=== PATIENT | male | born 1940 | race Caucasian/White ===

== ENCOUNTER → 2024-05-12 | Outpatient (CLI) | payer MEDICARE, OTHER, SELFPAY ==
[2024-05-12 11:03] LABS: Basophils # (Auto) 0.1 Thou/mm3 (0.0-0.2); Basophils % (Auto) 1 % (0-2.5); Eosinophils # (Auto) 0.4 Thou/mm3 (0.0-0.5); Eosinophils % (Auto) 6 % (0-10); Hemoglobin 13.9 g/dL (13.5-16.0); Immature Granulocytes % (Auto) 1 % (0-0); Immature Granulocytes Auto 0.06 Thou/mm3 (0.00-0.00); Lymphocytes # (Auto) 2.2 Thou/mm3 (1.0-4.8); Lymphocytes % (Auto) 33 % (10-50); Mean Corpuscular HGB Conc 33.9 g/dl (31.0-37.0); Mean Corpuscular Volume 88 fL (80-100); Monocytes # (Auto) 0.5 Thou/mm3 (0.0-0.8); Monocytes % (Auto) 7 % (0-12); Neutrophils # (Auto) 3.4 Thou/mm3 (1.8-7.7); Neutrophils % (Auto) 52 % (37-80); Nucleated Red Blood Cell % 0 /100 WBC (0); Platelet Count 220 Thou/mm3 (140-440); RDW Standard Deviation 45.1 fL (35.1-43.9); Red Blood Count 4.64 Miln/mm3 (4.50-5.90); White Blood Count 6.6 Thou/mm3 (3.8-10.6)
[2024-05-12 11:28] LABS: Alanine Aminotransferase 17 U/L (10-49); Albumin, Serum 4.4 gm/dL (3.4-4.8); Albumin/Globulin Ratio 1.8 (1.2-2.2); Alkaline Phosphatase 38 U/L (46-116); Anion Gap 6 (7-16); Aspartate Amino Transferase 19 U/L (0-34); BUN/Creatinine Ratio 17 Ratio (12-20); Bilirubin,Total 0.4 mg/dL (0.3-1.2); Blood Urea Nitrogen 24 mg/dL (9-23); Carbon Dioxide 27.9 mMol/L (20.0-31.0); Chloride 103 mMol/L (98-107); Creatinine (Component) 1.4 mg/dL (0.6-1.3); Globulin 2.5 gm/dL (2.3-3.5); Glucose 102 mg/dL (74-106); Osmolality,Calculated 277 (275-295); Potassium 3.6 mMol/L (3.4-5.1); Sodium 137 mMol/L (136-145); Total Protein 6.9 gm/dL (5.7-8.2); eGFR 50 See Note
== END | disposition home or self-care (01) ==
PROVIDERS: PCP Family Medicine; Referring Provider Internal Medicine Nephrology; Visit Provider Internal Medicine Nephrology
DX: I12.9 Hypertensive chronic kidney disease with stage 1 through stage 4 chronic kidney disease, or unspecified chronic kidney disease (principal); N18.9 Chronic kidney disease, unspecified; D63.1 Anemia in chronic kidney disease
CPT/HCPCS: 36415; 80053; 85025

== ENCOUNTER 2024-05-20 08:56 | Outpatient (RCR) | payer MEDICARE, OTHER, SELFPAY ==
--- NOTE | 2024-05-20 10:45 | CTCFLWUP_ITS ---
[facility] [address], [place] [address] FOLLOW-UP NOTE Date: 05/20/2024 MR#: [id number] Name: AMI CAMACHO : 1940 Dx: C61 Malignant neoplasm of prostate Identification. History of prostate CA status post radical prostatectomy 2007.. Noted to have rising PSA up to 5.41 12/30 2002 No evidence of lesion or distant mets on imaging studies. PET scan 09/26/2022 no met disease. 6840 cGy completed 05/06/2023. No ADT given concurrently. Most recent PSA 01/14/2024 0.11. 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 Has follow-up with Dr. Nita magana in June. I will see him back in 6 months with another PSA check. Electronically signed by: Koko Snyder M.D. 05/20/2024 10:42 AM
== END 2024-05-29 23:59 | disposition home or self-care (01) ==
LOC: SCTC 08:56
PROVIDERS: PCP Family Medicine; Referring Provider Family Medicine; Visit Provider Radiology Therapeutic Radiology
DX: C61 Malignant neoplasm of prostate (principal); Z90.79 Acquired absence of other genital organ(s); Z92.3 Personal history of irradiation
CPT/HCPCS: 99213; G0463

== ENCOUNTER → 2024-06-09 | Outpatient (CLI) | payer MEDICARE, OTHER, SELFPAY ==
[2024-06-09 11:40] LABS: Basophils % (Auto) 1 % (0-2.5); Eosinophils # (Auto) 0.4 Thou/mm3 (0.0-0.5); Eosinophils % (Auto) 6 % (0-10); Hematocrit 42.7 % (41.0-53.0); Hemoglobin 14.4 g/dL (13.5-16.0); Immature Granulocytes % (Auto) 0 % (0-0); Immature Granulocytes Auto 0.02 Thou/mm3 (0.00-0.00); Lymphocytes # (Auto) 2.3 Thou/mm3 (1.0-4.8); Lymphocytes % (Auto) 31 % (10-50); Mean Corpuscular HGB Conc 33.7 g/dl (31.0-37.0); Mean Corpuscular Hemoglobin 29.8 pg (25.0-35.0); Mean Corpuscular Volume 88 fL (80-100); Monocytes # (Auto) 0.6 Thou/mm3 (0.0-0.8); Monocytes % (Auto) 8 % (0-12); Neutrophils % (Auto) 55 % (37-80); Nucleated Red Blood Cell % 0 /100 WBC (0); Platelet Count 193 Thou/mm3 (140-440); RDW Standard Deviation 44.9 fL (35.1-43.9); Red Blood Count 4.83 Miln/mm3 (4.50-5.90); White Blood Count 7.3 Thou/mm3 (3.8-10.6)
[2024-06-09 12:11] LABS: Sed Rate (ESR) 6 mm/hr (0-20)
[2024-06-09 12:12] LABS: Alanine Aminotransferase 14 U/L (10-49); Albumin, Serum 4.6 gm/dL (3.4-4.8); Albumin/Globulin Ratio 1.9 (1.2-2.2); Alkaline Phosphatase 35 U/L (46-116); Anion Gap 7 (7-16); Aspartate Amino Transferase < 10 U/L (0-34); BUN/Creatinine Ratio 18 Ratio (12-20); Bilirubin,Total 0.6 mg/dL (0.3-1.2); Blood Urea Nitrogen 25 mg/dL (9-23); Calcium 9.7 mg/dL (8.3-10.6); Calcium (Corrected) 9.7 mg/dL (8.5-10.1); Carbon Dioxide 28.9 mMol/L (20.0-31.0); Cardiac Risk Estimate 6.3 RATIO (4.0-6.7); Chloride 100 mMol/L (98-107); Cholesterol 238 mg/dL (132-200); Creatine Kinase 77 U/L (34-171); Creatinine (Component) 1.4 mg/dL (0.6-1.3); Globulin 2.4 gm/dL (2.3-3.5); Glucose 96 mg/dL (74-106); HDL Cholesterol 38 mg/dL (40-60); LDL Cholesterol,Calculated 134 mg/dL (0-130); Magnesium 2.1 mg/dL (1.6-2.6); Osmolality,Calculated 276 (275-295); Potassium 4.1 mMol/L (3.4-5.1); Sodium 136 mMol/L (136-145); Triglycerides 332 mg/dL (30-150); eGFR 50 See Note
[2024-06-09 13:57] LABS: Creatinine MALB Rnd Ur 83 mg/dL (30-125); Microalbumin, Random Urine < 3 mg/L (0-300)
[2024-06-14 06:58] LABS: Aldolase* 4.7 U/L (< OR = 8.1)
== END | disposition home or self-care (01) ==
LOC: COPL 10:42
PROVIDERS: PCP Family Medicine; Referring Provider Internal Medicine Nephrology; Visit Provider Internal Medicine Nephrology
DX: I12.9 Hypertensive chronic kidney disease with stage 1 through stage 4 chronic kidney disease, or unspecified chronic kidney disease (principal); N18.9 Chronic kidney disease, unspecified; D63.1 Anemia in chronic kidney disease; E78.5 Hyperlipidemia, unspecified
CPT/HCPCS: 36415; 80053; 80061; 82043; 82085; 82550; 82570; 83735; 85025; 85652

== ENCOUNTER → 2024-07-14 | Outpatient (CLI) | payer MEDICARE, OTHER, SELFPAY ==
[2024-07-14 11:42] LABS: Basophils # (Auto) 0.1 Thou/mm3 (0.0-0.2); Basophils % (Auto) 1 % (0-2.5); Eosinophils # (Auto) 0.8 Thou/mm3 (0.0-0.5); Eosinophils % (Auto) 10 % (0-10); Hematocrit 41.4 % (41.0-53.0); Hemoglobin 14.1 g/dL (13.5-16.0); Immature Granulocytes % (Auto) 1 % (0-0); Immature Granulocytes Auto 0.04 Thou/mm3 (0.00-0.00); Lymphocytes # (Auto) 2.5 Thou/mm3 (1.0-4.8); Lymphocytes % (Auto) 30 % (10-50); Mean Corpuscular HGB Conc 34.1 g/dl (31.0-37.0); Mean Corpuscular Volume 88 fL (80-100); Monocytes # (Auto) 0.7 Thou/mm3 (0.0-0.8); Monocytes % (Auto) 8 % (0-12); Neutrophils # (Auto) 4.2 Thou/mm3 (1.8-7.7); Neutrophils % (Auto) 51 % (37-80); Nucleated Red Blood Cell % 0 /100 WBC (0); Platelet Count 203 Thou/mm3 (140-440); RDW Standard Deviation 43.1 fL (35.1-43.9); White Blood Count 8.4 Thou/mm3 (3.8-10.6)
[2024-07-14 11:57] LABS: Alanine Aminotransferase 15 U/L (10-49); Albumin, Serum 4.3 gm/dL (3.4-4.8); Albumin/Globulin Ratio 1.9 (1.2-2.2); Alkaline Phosphatase 33 U/L (46-116); Anion Gap 7 (7-16); Aspartate Amino Transferase 14 U/L (0-34); BUN/Creatinine Ratio 18 Ratio (12-20); Bilirubin,Total 0.5 mg/dL (0.3-1.2); Blood Urea Nitrogen 25 mg/dL (9-23); Calcium 9.8 mg/dL (8.3-10.6); Calcium (Corrected) 9.8 mg/dL (8.5-10.1); Carbon Dioxide 30.4 mMol/L (20.0-31.0); Cardiac Risk Estimate 4.9 RATIO (4.0-6.7); Chloride 102 mMol/L (98-107); Cholesterol 167 mg/dL (132-200); Creatinine (Component) 1.4 mg/dL (0.6-1.3); Globulin 2.3 gm/dL (2.3-3.5); Glucose 99 mg/dL (74-106); HDL Cholesterol 34 mg/dL (40-60); LDL Cholesterol,Calculated 91 mg/dL (0-130); Osmolality,Calculated 281 (275-295); Potassium 4.1 mMol/L (3.4-5.1); Sodium 139 mMol/L (136-145); Total Protein 6.6 gm/dL (5.7-8.2); Triglycerides 208 mg/dL (30-150); eGFR 50 See Note
== END | disposition home or self-care (01) ==
LOC: COPL 10:09
PROVIDERS: PCP Family Medicine; Referring Provider Internal Medicine Nephrology; Visit Provider Internal Medicine Nephrology
DX: I12.9 Hypertensive chronic kidney disease with stage 1 through stage 4 chronic kidney disease, or unspecified chronic kidney disease (principal); N18.9 Chronic kidney disease, unspecified; D63.1 Anemia in chronic kidney disease; E78.5 Hyperlipidemia, unspecified
CPT/HCPCS: 36415; 80053; 80061; 85025

== ENCOUNTER → 2024-08-11 | Outpatient (CLI) | payer MEDICARE, OTHER, SELFPAY ==
[2024-08-11 12:08] LABS: Basophils # (Auto) 0.1 Thou/mm3 (0.0-0.2); Basophils % (Auto) 1 % (0-2.5); Eosinophils # (Auto) 0.5 Thou/mm3 (0.0-0.5); Eosinophils % (Auto) 7 % (0-10); Hematocrit 40.9 % (41.0-53.0); Hemoglobin 13.8 g/dL (13.5-16.0); Immature Granulocytes % (Auto) 1 % (0-0); Immature Granulocytes Auto 0.04 Thou/mm3 (0.00-0.00); Lymphocytes # (Auto) 2.6 Thou/mm3 (1.0-4.8); Lymphocytes % (Auto) 35 % (10-50); Mean Corpuscular HGB Conc 33.7 g/dl (31.0-37.0); Mean Corpuscular Hemoglobin 29.6 pg (25.0-35.0); Mean Corpuscular Volume 88 fL (80-100); Monocytes # (Auto) 0.6 Thou/mm3 (0.0-0.8); Monocytes % (Auto) 9 % (0-12); Neutrophils # (Auto) 3.5 Thou/mm3 (1.8-7.7); Neutrophils % (Auto) 48 % (37-80); Nucleated Red Blood Cell % 0 /100 WBC (0); Platelet Count 187 Thou/mm3 (140-440); RDW Standard Deviation 43.5 fL (35.1-43.9); Red Blood Count 4.67 Miln/mm3 (4.50-5.90); White Blood Count 7.3 Thou/mm3 (3.8-10.6)
[2024-08-11 12:26] LABS: Alanine Aminotransferase 30 U/L (10-49); Albumin, Serum 4.3 gm/dL (3.4-4.8); Albumin/Globulin Ratio 1.8 (1.2-2.2); Alkaline Phosphatase 35 U/L (46-116); Anion Gap 7 (7-16); Aspartate Amino Transferase 21 U/L (0-34); BUN/Creatinine Ratio 20 Ratio (12-20); Bilirubin,Total 0.5 mg/dL (0.3-1.2); Blood Urea Nitrogen 28 mg/dL (9-23); Calcium 10.5 mg/dL (8.3-10.6); Calcium (Corrected) 10.5 mg/dL (8.5-10.1); Carbon Dioxide 29.3 mMol/L (20.0-31.0); Chloride 104 mMol/L (98-107); Creatinine (Component) 1.4 mg/dL (0.6-1.3); Globulin 2.4 gm/dL (2.3-3.5); Glucose 91 mg/dL (74-106); Osmolality,Calculated 284 (275-295); Sodium 140 mMol/L (136-145); Total Protein 6.7 gm/dL (5.7-8.2); eGFR 50 See Note
[2024-08-11 12:28] LABS: Creatinine MALB Rnd Ur 90 mg/dL (30-125); Microalbumin, Random Urine < 3 mg/L (0-300)
== END | disposition home or self-care (01) ==
LOC: COPL 10:54
PROVIDERS: PCP Family Medicine; Referring Provider Internal Medicine Nephrology; Visit Provider Internal Medicine Nephrology
DX: I12.9 Hypertensive chronic kidney disease with stage 1 through stage 4 chronic kidney disease, or unspecified chronic kidney disease (principal); N18.9 Chronic kidney disease, unspecified; D63.1 Anemia in chronic kidney disease; E78.5 Hyperlipidemia, unspecified; N40.1 Benign prostatic hyperplasia with lower urinary tract symptoms
CPT/HCPCS: 36415; 80053; 82043; 82570; 85025

== ENCOUNTER → 2024-09-15 | Outpatient (CLI) | payer MEDICARE, OTHER, SELFPAY ==
[2024-09-15 11:26] LABS: Basophils # (Auto) 0.1 Thou/mm3 (0.0-0.2); Basophils % (Auto) 1 % (0-2.5); Eosinophils # (Auto) 0.4 Thou/mm3 (0.0-0.5); Eosinophils % (Auto) 6 % (0-10); Hematocrit 40.5 % (41.0-53.0); Hemoglobin 13.6 g/dL (13.5-16.0); Immature Granulocytes % (Auto) 1 % (0-0); Immature Granulocytes Auto 0.03 Thou/mm3 (0.00-0.00); Lymphocytes # (Auto) 2.3 Thou/mm3 (1.0-4.8); Lymphocytes % (Auto) 36 % (10-50); Mean Corpuscular HGB Conc 33.6 g/dl (31.0-37.0); Mean Corpuscular Hemoglobin 29.6 pg (25.0-35.0); Mean Corpuscular Volume 88 fL (80-100); Monocytes # (Auto) 0.5 Thou/mm3 (0.0-0.8); Monocytes % (Auto) 8 % (0-12); Neutrophils # (Auto) 3.2 Thou/mm3 (1.8-7.7); Neutrophils % (Auto) 49 % (37-80); Nucleated Red Blood Cell % 0 /100 WBC (0); Platelet Count 204 Thou/mm3 (140-440); RDW Standard Deviation 44.4 fL (35.1-43.9); White Blood Count 6.5 Thou/mm3 (3.8-10.6)
[2024-09-15 11:44] LABS: Alanine Aminotransferase 17 U/L (10-49); Albumin/Globulin Ratio 1.7 (1.2-2.2); Alkaline Phosphatase 32 U/L (46-116); Anion Gap 7 (7-16); Aspartate Amino Transferase 16 U/L (0-34); BUN/Creatinine Ratio 18 Ratio (12-20); Bilirubin,Total 0.6 mg/dL (0.3-1.2); Blood Urea Nitrogen 25 mg/dL (9-23); Calcium 9.4 mg/dL (8.3-10.6); Calcium (Corrected) 9.4 mg/dL (8.5-10.1); Carbon Dioxide 29.3 mMol/L (20.0-31.0); Chloride 104 mMol/L (98-107); Creatinine (Component) 1.4 mg/dL (0.6-1.3); Globulin 2.3 gm/dL (2.3-3.5); Glucose 91 mg/dL (74-106); Osmolality,Calculated 283 (275-295); Potassium 4.5 mMol/L (3.4-5.1); Sodium 140 mMol/L (136-145); Total Protein 6.3 gm/dL (5.7-8.2); eGFR 50 See Note
== END | disposition home or self-care (01) ==
LOC: COPL 10:33
PROVIDERS: PCP Family Medicine; Referring Provider Internal Medicine; Visit Provider Internal Medicine
DX: I12.9 Hypertensive chronic kidney disease with stage 1 through stage 4 chronic kidney disease, or unspecified chronic kidney disease (principal); D63.1 Anemia in chronic kidney disease; N18.30 Chronic kidney disease, stage 3 unspecified
CPT/HCPCS: 36415; 80053; 85025

== ENCOUNTER 2024-09-28 06:43 | Day surgery (SDC) | payer MEDICARE, OTHER, SELFPAY ==
--- NOTE | 2024-09-27 07:00 | EKG_ITS ---
[facility] Test Date: 2024-09-27 Pat Name: AMI CAMACHO Department: Room: - Gender: Male Neurology Hospitalist: FTUIB : 1940 Requested By: Genny Larsen Order Number: [id number] Reading MD: Genny Larsen Measurements Intervals [place] Rate: 59 P: 73 MO: 269 QRS: -19 QRSD: 79 T: 8 QT: 395 QTc: 393 Interpretive Statements SINUS BRADYCARDIA WITH SINUS ARRHYTHMIA WITH FIRST DEGREE AV BLOCK Compared to ECG 11/14/2023 15:06:34 First degree AV block now present Atrial-paced complex(es) or rhythm no longer present Ventricular-paced complex(es) or rhythm no longer present /store/S0/[id number].pdf
[2024-09-27 12:55] LABS: Basophils # (Auto) 0.1 Thou/mm3 (0.0-0.2); Basophils % (Auto) 1 % (0-2.5); Eosinophils # (Auto) 0.6 Thou/mm3 (0.0-0.5); Eosinophils % (Auto) 8 % (0-10); Hematocrit 42.3 % (41.0-53.0); Hemoglobin 14.3 g/dL (13.5-16.0); Immature Granulocytes % (Auto) 0 % (0-0); Immature Granulocytes Auto 0.03 Thou/mm3 (0.00-0.00); Lymphocytes # (Auto) 2.9 Thou/mm3 (1.0-4.8); Lymphocytes % (Auto) 39 % (10-50); Mean Corpuscular HGB Conc 33.8 g/dl (31.0-37.0); Mean Corpuscular Hemoglobin 29.6 pg (25.0-35.0); Mean Corpuscular Volume 88 fL (80-100); Monocytes # (Auto) 0.6 Thou/mm3 (0.0-0.8); Monocytes % (Auto) 8 % (0-12); Neutrophils # (Auto) 3.3 Thou/mm3 (1.8-7.7); Neutrophils % (Auto) 44 % (37-80); Nucleated Red Blood Cell % 0 /100 WBC (0); Platelet Count 206 Thou/mm3 (140-440); RDW Standard Deviation 44.3 fL (35.1-43.9); Red Blood Count 4.83 Miln/mm3 (4.50-5.90); White Blood Count 7.5 Thou/mm3 (3.8-10.6)
[2024-09-27 13:01] LABS: Anion Gap 8 (7-16); BUN/Creatinine Ratio 15 Ratio (12-20); Blood Urea Nitrogen 20 mg/dL (9-23); Calcium 10.3 mg/dL (8.3-10.6); Carbon Dioxide 28.9 mMol/L (20.0-31.0); Chloride 102 mMol/L (98-107); Creatinine (Component) 1.3 mg/dL (0.6-1.3); Glucose 94 mg/dL (74-106); Osmolality,Calculated 280 (275-295); Potassium 4.2 mMol/L (3.4-5.1); Sodium 139 mMol/L (136-145); eGFR 55 See Note
[2024-09-27 13:07] LABS: Partial Thromboplastin Time 26.2 Seconds (22.0-36.0); Prothrombin Time 11.1 Seconds (9.0-12.2)
[2024-09-27 13:13] LABS: COVID-19 Antigen (In-House) Negative (Negative)
--- NOTE | 2024-09-27 13:14 | EKG_ITS ---
[facility] Test Date: 2024-09-27 Pat Name: AMI CAMACHO Department: Room: - Gender: Male Legal Service Specialist: LUIS DANIEL : 1940 Requested By: Genny Larsen Order Number: [id number] Reading MD: Genny Larsen Measurements Intervals [place] Rate: 76 P: 151 MD: 208 QRS: -61 QRSD: 204 T: 94 QT: 491 QTc: 555 Interpretive Statements ELECTRONIC ATRIAL PACEMAKER ELECTRONIC VENTRICULAR PACEMAKER ABNORMAL RHYTHM ECG Compared to ECG 09/27/2024 08:40:45 Sinus bradycardia no longer present Sinus arrhythmia no longer present First degree AV block no longer present /store/S0/[id number]/[id number].pdf
[2024-09-28] VITALS (17 sets, daily range): BP systolic 132–173; BP diastolic 69–96; PULSE 62–73; RESP 11–19; TEMP 36.3–36.7; O2SAT 92–98
[2024-09-28] MEDS: DIAZEPAM 5 MG TABLET PO (07:15)
--- NOTE | 2024-09-28 08:55 | PD.CARDCATH ---
Cardiac Cath Procedure Procedure Narrative Date of the procedure 09/28/2024 Title of the procedure 1. Left heart catheterization 2. Left coronary angiogram 3. Right coronary angiogram 4. Left ventriculogram 5. Conscious sedation 6. Radiographic interpretation supervision 7. Ultrasound guidence for Right radial access 8.angioplasty and stent placement to mid RCA complex procedure Indication for the procedure This is a 84-year-old gentleman with past medical history of hypertension hyperlipidemia atrial fibrillation prior history of permanent pacemaker placement Patient was complaining of atypical chest pain short of breath He did undergo stress test which was abnormal Cardiac catheter and cholangiogram recommended Procedure This is done in the cardiac lab under continuous electrocardiographic monitoring Intermittent blood pressure monitoring right radial arterial access obtained using modified Seldinger technique 6 Upper Sorbian radial sheath was placed under ultrasound guidence TIG catheter was used for selective injection of the Left coronary artery TIG cather was used for selective injection of the Right coroanry artery TIG cather was used for LV gram Findings Hemodynamics Left ventricular systolic function is 30 to 35% Left ventricular end-diastolic pressure is 18 mmHg Gradient across the aortic valve is 0 mm gradient Coronary anatomy Right dominance Left main coronary artery is normal Left anterior descending artery is mid segment shows a 90% lesion Diagonal vessel is luminal regularities Left circumflex artery is normal Obtuse marginal vessel is luminal irregularities Right coronary artery is mid segment shows a 90% lesion Posterior descending artery is luminal irregularities Conclusion 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 We will proceed with intervention Recommendation Angioplasty and stent placement to RCA Angioplasty and stent placement RCA JR4 guiding catheter used to obtain coaxial access Fur Examiner 50 wire was used to cross the lesion Predilatation was done with 3 x 15 mm balloon up to 12 miya Following that we initially attempted to cross the lesion with a 4 x 18 mm stent however this was found to be difficult Subsequently 3.5 x 18 mm stent was brought back this is also unable to cross the lesion Moderate support wire was brought in and even with this we were unable to cross the lesion At this point we brought down the Godzilla with the help of Vipul we were able to place a stent across the lesion and dilated up to 18 miya Post an angiogram reveals adequate expansion of the entire length of the stent Conclusion Angioplasty and stent placement to mid RCA Proximal LAD lesion will be treated as a staged procedure with intervention
== END 2024-09-28 13:00 | disposition home or self-care (01) ==
PROVIDERS: PCP Family Medicine; Referring Provider Internal Medicine; Visit Provider Internal Medicine
PROC: (CPT 93458; principal; 2024-09-28 08:15)
DX: I25.118 Atherosclerotic heart disease of native coronary artery with other forms of angina pectoris (principal); I48.91 Unspecified atrial fibrillation; E78.5 Hyperlipidemia, unspecified; I10 Essential (primary) hypertension; Z95.5 Presence of coronary angioplasty implant and graft; Z01.810 Encounter for preprocedural cardiovascular examination
CPT/HCPCS: 93458; C9600; 36415; 80048; 85025; 85610; 85730; 87811; 93005; 99152; 99153; A4216; A4649; C1725; C1769; C1874; C1887; C1894; J0153; J0171; J0282; J0461; J0583; J1643; J2250; J2310; J2371; J3010; J3490; A9270; J2305

== ENCOUNTER → 2024-10-07 | Outpatient (CLI) | payer MEDICARE, OTHER, SELFPAY ==
[2024-10-07 09:29] LABS: Basophils # (Auto) 0.1 Thou/mm3 (0.0-0.2); Basophils % (Auto) 1 % (0-2.5); Eosinophils # (Auto) 0.5 Thou/mm3 (0.0-0.5); Eosinophils % (Auto) 8 % (0-10); Hematocrit 40.7 % (41.0-53.0); Hemoglobin 13.6 g/dL (13.5-16.0); Immature Granulocytes % (Auto) 0 % (0-0); Immature Granulocytes Auto 0.01 Thou/mm3 (0.00-0.00); Lymphocytes # (Auto) 2.6 Thou/mm3 (1.0-4.8); Lymphocytes % (Auto) 40 % (10-50); Mean Corpuscular HGB Conc 33.4 g/dl (31.0-37.0); Mean Corpuscular Hemoglobin 29.3 pg (25.0-35.0); Mean Corpuscular Volume 88 fL (80-100); Monocytes # (Auto) 0.6 Thou/mm3 (0.0-0.8); Monocytes % (Auto) 9 % (0-12); Neutrophils # (Auto) 2.8 Thou/mm3 (1.8-7.7); Neutrophils % (Auto) 42 % (37-80); Nucleated Red Blood Cell % 0 /100 WBC (0); Platelet Count 194 Thou/mm3 (140-440); RDW Standard Deviation 44.4 fL (35.1-43.9); Red Blood Count 4.64 Miln/mm3 (4.50-5.90); White Blood Count 6.6 Thou/mm3 (3.8-10.6)
[2024-10-07 10:04] LABS: Alanine Aminotransferase 11 U/L (10-49); Albumin, Serum 4.1 gm/dL (3.4-4.8); Albumin/Globulin Ratio 1.5 (1.2-2.2); Alkaline Phosphatase 37 U/L (46-116); Anion Gap 8 (7-16); Aspartate Amino Transferase 17 U/L (0-34); BUN/Creatinine Ratio 14 Ratio (12-20); Bilirubin,Total 0.8 mg/dL (0.3-1.2); Blood Urea Nitrogen 21 mg/dL (9-23); Calcium 9.4 mg/dL (8.3-10.6); Calcium (Corrected) 9.4 mg/dL (8.5-10.1); Carbon Dioxide 27.8 mMol/L (20.0-31.0); Chloride 103 mMol/L (98-107); Creatinine (Component) 1.5 mg/dL (0.6-1.3); Globulin 2.7 gm/dL (2.3-3.5); Glucose 97 mg/dL (74-106); Magnesium 2.1 mg/dL (1.6-2.6); Osmolality,Calculated 280 (275-295); Sodium 139 mMol/L (136-145); Total Protein 6.8 gm/dL (5.7-8.2); eGFR 46 See Note
== END | disposition home or self-care (01) ==
LOC: COPL 08:08
PROVIDERS: PCP Family Medicine; Referring Provider Internal Medicine Nephrology; Visit Provider Internal Medicine Nephrology
DX: I12.9 Hypertensive chronic kidney disease with stage 1 through stage 4 chronic kidney disease, or unspecified chronic kidney disease (principal); N18.9 Chronic kidney disease, unspecified; D63.1 Anemia in chronic kidney disease; E55.9 Vitamin D deficiency, unspecified
CPT/HCPCS: 36415; 80053; 83735; 85025

== ENCOUNTER → 2024-11-03 | Outpatient (CLI) | payer MEDICARE, OTHER, SELFPAY ==
[2024-11-03 09:52] LABS: Basophils # (Auto) 0.1 Thou/mm3 (0.0-0.2); Basophils % (Auto) 1 % (0-2.5); Eosinophils # (Auto) 0.7 Thou/mm3 (0.0-0.5); Eosinophils % (Auto) 10 % (0-10); Hematocrit 38.5 % (41.0-53.0); Hemoglobin 13.1 g/dL (13.5-16.0); Immature Granulocytes % (Auto) 0 % (0-0); Immature Granulocytes Auto 0.02 Thou/mm3 (0.00-0.00); Lymphocytes # (Auto) 2.3 Thou/mm3 (1.0-4.8); Lymphocytes % (Auto) 34 % (10-50); Mean Corpuscular Hemoglobin 29.5 pg (25.0-35.0); Mean Corpuscular Volume 87 fL (80-100); Monocytes # (Auto) 0.5 Thou/mm3 (0.0-0.8); Monocytes % (Auto) 8 % (0-12); Neutrophils # (Auto) 3.1 Thou/mm3 (1.8-7.7); Neutrophils % (Auto) 47 % (37-80); Nucleated Red Blood Cell % 0 /100 WBC (0); Platelet Count 188 Thou/mm3 (140-440); Red Blood Count 4.44 Miln/mm3 (4.50-5.90); White Blood Count 6.7 Thou/mm3 (3.8-10.6)
[2024-11-03 10:22] LABS: Alanine Aminotransferase 19 U/L (10-49); Albumin, Serum 4.4 gm/dL (3.4-4.8); Albumin/Globulin Ratio 1.8 (1.2-2.2); Alkaline Phosphatase 45 U/L (46-116); Anion Gap 9 (7-16); Aspartate Amino Transferase 21 U/L (0-34); BUN/Creatinine Ratio 18 Ratio (12-20); Bilirubin,Total 0.8 mg/dL (0.3-1.2); Blood Urea Nitrogen 24 mg/dL (9-23); Calcium 9.5 mg/dL (8.3-10.6); Calcium (Corrected) 9.5 mg/dL (8.5-10.1); Chloride 106 mMol/L (98-107); Creatinine (Component) 1.3 mg/dL (0.6-1.3); Globulin 2.5 gm/dL (2.3-3.5); Glucose 96 mg/dL (74-106); Magnesium 1.9 mg/dL (1.6-2.6); Osmolality,Calculated 287 (275-295); Potassium 3.9 mMol/L (3.4-5.1); Sodium 142 mMol/L (136-145); Total Protein 6.9 gm/dL (5.7-8.2); eGFR 55 See Note
[2024-11-03 10:49] LABS: Creatinine MALB Rnd Ur 41 mg/dL (30-125); Microalbumin, Random Urine < 3 mg/L (0-300)
== END | disposition home or self-care (01) ==
LOC: COPL 09:16
PROVIDERS: PCP Family Medicine; Referring Provider Internal Medicine Nephrology; Visit Provider Internal Medicine Nephrology
DX: I12.9 Hypertensive chronic kidney disease with stage 1 through stage 4 chronic kidney disease, or unspecified chronic kidney disease (principal); N18.9 Chronic kidney disease, unspecified; D63.1 Anemia in chronic kidney disease
CPT/HCPCS: 36415; 80053; 82043; 82570; 83735; 85025

== ENCOUNTER 2024-11-04 17:00 | Emergency (ER) | payer MEDICARE, OTHER, SELFPAY ==
[2024-11-04 17:15] VITALS: BP 138/78; PULSE 79; RESP 18; TEMP 36.8; O2SAT 95; BMI 28.0
--- NOTE | 2024-11-04 17:34 | EKG_ITS ---
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1940 Requested By: Tyler Regalado Order Number: [id number] Reading MD: Tyler Regalado Measurements Intervals [place] Rate: 69 P: 25 NM: 206 QRS: -38 QRSD: 114 T: -23 QT: 354 QTc: 380 Interpretive Statements SINUS RHYTHM LEFT AXIS DEVIATION [QRS AXIS < -30] PATTERN CONSISTENT WITH PULMONARY DISEASE MODERATE INTRAVENTRICULAR CONDUCTION DELAY [110+ ms QRS DURATION] NONSPECIFIC T-WAVE ABNORMALITY Compared to ECG 09/27/2024 11:42:47 Left-axis deviation now present Intraventricular conduction delay now present T-wave abnormality now present Atrial-paced complex(es) or rhythm no longer present Ventricular-paced complex(es) or rhythm no longer present /store/S0/[id number]/ecg/[id number].pdf
--- NOTE | 2024-11-04 17:34 | XR_ITS ---
Examination: PA lateral chest 2 views TECHNIQUE: upright PA lateral chest 2 views Exam date time: November 04, 2024 1818 hours Comparison November 14, 2023 INDICATIONS: Dizziness for deviating 5 weeks ago. FINDINGS: Mild prominence left ventricle Cardiac leads satisfactory position. No pneumonia or pulmonary edema. Moderate thoracic spondylosis IMPRESSION: No pneumonia or pulmonary edema
--- NOTE | 2024-11-04 17:34 | PD.EDRME ---
Rapid Medical Screening Exam RME Arrival date/time: 11/04/24 17:00 84-year-old male with a history of DVT, hypertension presents to the emergency room with a chief complaint of dizziness and near syncopal episodes x 3 days I have greeted and performed a focused initial assessment of this patient. A comprehensive ED assessment and evaluation of the patient, analysis of all test results, and completion of the medical decision making process will be conducted by additional ED providers. Chief Complaint: Dizziness Vital signs: Vital Signs Temperature 98.2 F 11/04/24 17:15 Pulse Rate 79 11/04/24 17:15 Respiratory Rate 18 11/04/24 17:15 Blood Pressure 138/78 H 11/04/24 17:15 Pulse Oximetry (%) 95 11/04/24 17:15 Oxygen Delivery Method Room Air 11/04/24 17:15 Vital signs reviewed by provider: Yes
[2024-11-04 18:06] LABS: Basophils # (Auto) 0.1 Thou/mm3 (0.0-0.2); Basophils % (Auto) 1 % (0-2.5); Eosinophils # (Auto) 0.5 Thou/mm3 (0.0-0.5); Eosinophils % (Auto) 6 % (0-10); Hematocrit 37.8 % (41.0-53.0); Hemoglobin 12.9 g/dL (13.5-16.0); Immature Granulocytes % (Auto) 0 % (0-0); Immature Granulocytes Auto 0.02 Thou/mm3 (0.00-0.00); Lymphocytes # (Auto) 2.5 Thou/mm3 (1.0-4.8); Lymphocytes % (Auto) 29 % (10-50); Mean Corpuscular HGB Conc 34.1 g/dl (31.0-37.0); Mean Corpuscular Hemoglobin 29.9 pg (25.0-35.0); Mean Corpuscular Volume 88 fL (80-100); Monocytes # (Auto) 0.8 Thou/mm3 (0.0-0.8); Monocytes % (Auto) 9 % (0-12); Neutrophils # (Auto) 4.7 Thou/mm3 (1.8-7.7); Neutrophils % (Auto) 54 % (37-80); Nucleated Red Blood Cell % 0 /100 WBC (0); Platelet Count 193 Thou/mm3 (140-440); RDW Standard Deviation 43.7 fL (35.1-43.9); Red Blood Count 4.32 Miln/mm3 (4.50-5.90); White Blood Count 8.7 Thou/mm3 (3.8-10.6)
[2024-11-04 18:20] LABS: INR 1.1 (0.9-1.3); Partial Thromboplastin Time 27.9 Seconds (22.0-36.0); Prothrombin Time 11.7 Seconds (9.0-12.2)
[2024-11-04 18:22] LABS: B-Type Natriuretic Peptide 129 pg/mL (0-100)
[2024-11-04 18:24] LABS: Alanine Aminotransferase 20 U/L (10-49); Albumin, Serum 4.5 gm/dL (3.4-4.8); Albumin/Globulin Ratio 1.7 (1.2-2.2); Alkaline Phosphatase 45 U/L (46-116); Anion Gap 10 (7-16); Aspartate Amino Transferase 23 U/L (0-34); BUN/Creatinine Ratio 19 Ratio (12-20); Bilirubin,Total 0.9 mg/dL (0.3-1.2); Blood Urea Nitrogen 30 mg/dL (9-23); Calcium 9.4 mg/dL (8.3-10.6); Calcium (Corrected) 9.4 mg/dL (8.5-10.1); Carbon Dioxide 24.9 mMol/L (20.0-31.0); Chloride 104 mMol/L (98-107); Creatinine (Component) 1.6 mg/dL (0.6-1.3); Estimated Creatinine Clearance 41.1 mL/min (>60); Globulin 2.7 gm/dL (2.3-3.5); Glucose 86 mg/dL (74-106); Osmolality,Calculated 282 (275-295); Potassium 3.6 mMol/L (3.4-5.1); Sodium 139 mMol/L (136-145); Total Protein 7.2 gm/dL (5.7-8.2); eGFR 43 See Note
[2024-11-04 18:28] LABS: Troponin I 0.074 ng/mL (0.0-0.045)
[2024-11-04 18:47] LABS: Collection Type, Urine Clean Catch
[2024-11-04 19:05] LABS: Bilirubin,Urine Negative (Negative); Blood,Urine Negative (Negative); Clarity,Urine Clear (Clear/Hazy); Color,Urine Yellow (Lt Yel-Yel); Glucose, Urine Negative (Negative); Hyaline Casts,Urine 1 /hpf (0-1); Ketones,Urine Trace (Negative); Leukocyte Esterase,Urine Negative (Negative); Nitrite,Urine Negative (Negative); Protein,Urine Negative (Neg - Trace); RBC,Urine 2 /hpf (0-3); Specific Gravity,Urine 1.026 (1.001-1.035); Squamous Epithelial Cell,Urine < 1 /hpf (0-5); Urobilinogen,Urine Negative mg/dL (0.0-1.0); WBC,Urine 1 /hpf (0-5)
[2024-11-04 20:42] VITALS: BP 166/78; PULSE 74; RESP 18; TEMP 36.5; O2SAT 97
--- NOTE | 2024-11-04 22:10 | EKG_ITS ---
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
[2024-11-04 22:28] VITALS: BP 169/88; PULSE 86; RESP 17; TEMP 36.8; O2SAT 97
[2024-11-04 22:56] LABS: Troponin I 0.068 ng/mL (0.0-0.045)
--- NOTE | 2024-11-04 23:14 | PD.EDADULT ---
ED General RME/HPI General Chief complaint: Dizziness Stated complaint: HAVING REALLY BAD DIZZY SPELL ; HX STENT 09/28/24 Source: patient Arrival date/time: 11/04/24 17:00 84-year-old male presents to the emergency department with the onset of dizziness and near syncope for the past 3 days, but worse today. 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 He denies any vertigo type symptoms. He denies any chest pain or shortness of breath. He has had some nausea but no vomiting. He had a stent placement on 09/28/2024. Initial surgery was intended to be 2 stents however the chief counsel had difficulty with the first stent therefore he decided to perform the second stent at a later date (next month). He attempted to call his chief counsel today but he was not in the office so his office staff recommended he come to the ED for further evaluation. Mode of arrival: ambulatory Limitations: no limitations RME / HPI RME / HPI narrative: 11/04/24 17:00 84-year-old male with a history of DVT, hypertension presents to the emergency room with a chief complaint of dizziness and near syncopal episodes x 3 days I have greeted and performed a focused initial assessment of this patient. A comprehensive ED assessment and evaluation of the patient, analysis of all test results, and completion of the medical decision making process will be conducted by additional ED providers. Related Data Home Medications ?Medication ?Instructions ?Recorded ?Confirmed magnesium 200 mg tablet 400 mg PO QDAY 08/21/17 09/28/24 furosemide 40 mg tablet (Lasix) 40 mg PO QAM 09/28/24 09/28/24 hydralazine 10 mg tablet 10 mg PO TID 09/28/24 09/28/24 metoprolol succinate 50 mg capsule 50 mg PO QDAY 09/28/24 09/28/24 sprinkle, ext. release 24 hr (Kapspargo Sprinkle) Previous Rx's ?Medication ?Instructions ?Recorded apixaban 5 mg (74 tabs) tablets in 5 mg PO BID #74 tabs 02/06/23 a dose pack (Eliquis DVT-PE Treat 30D Start) Held on 09/28/24. Instructions: Resume on 09/29/24. YOU CAN START TAKING THIS MEDICATION AGAIN ON THIS DATE AT YOUR USUAL TIME aspirin 81 mg tablet,delayed 81 mg PO QDAY #30 tabs 09/28/24 release clopidogrel 75 mg tablet (Plavix) 75 mg PO QDAY #30 tabs 09/28/24 Allergies Allergy/AdvReac Type Severity Reaction Status Date / Time No Known Allergies Allergy Verified 11/04/24 17:03 Review of Systems Review of Systems Systems Reviewed: All systems reviewed, normal except as documented ED Exam Narrative Physical exam: A pleasant 84-year-old male, no acute distress, resting on gurney comfortably. He has no lightheadedness or dizziness when sitting up from a laying down position for exam. Lungs are clear, cardiovascular irregularly irregular rhythm. Abdomen is soft and nontender. Cranial nerves II through XII grossly intact. Moves all extremities well. 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 Negative pronator drift. General Limitations: Present no limitations General appearance: Present alert Head Head exam: Present atraumatic, normocephalic and normal inspection Eye Eye exam: Present normal appearance, PERRL and EOMI; Absent scleral icterus, conjunctival injection or nystagmus ENT ENT exam: Present normal exam, mucous membranes moist and TM's normal bilaterally Neck Neck exam: Present normal inspection, full ROM and trachea midline; Absent tenderness or lymphadenopathy Chest Chest inspection: Present normal inspection and symmetric chest wall rise Respiratory Respiratory exam: Present normal lung sounds bilaterally; Absent respiratory distress or wheezes Cardiovascular Cardiovascular exam: Present regular rate and irregular rhythm Abdominal Exam Abdominal exam: Present soft; Absent distention, tenderness, guarding or rebound Rectal Exam Rectal exam: Present deferred Extremities Exam Extremities exam: Present normal inspection and full ROM; Absent tenderness Back Exam Back exam: Present normal inspection and full ROM; Absent tenderness, CVA tenderness (R) or CVA tenderness (L) Neurological Exam Neurological exam: Present alert, oriented X3 and CN II-XII intact; Absent motor sensory deficit Expanded Neurological Exam Patient oriented to: Present person, place and time Speech: Present fluid speech Cranial nerves: Normal: EOM function (II, III, IV, ), facial sensation (V), facial palsy (VII) and tongue deviation (XII) Motor strength - LUE: 5/5 Motor strength - RUE: 5/5 Motor strength - LLE: 5/5 Motor strength - RLE: 5/5 Upper motor neuron exam: Normal: muna neglect, pronator drift and sensory extinction Sensory exam upper extremity: Normal: light touch Sensory exam lower extremity: Normal: light touch Coma scale eye opening: spontaneous Coma scale motor response: obeys commands Coma scale verbal response: oriented Coma scale total: 15 Psychiatric Psychiatric exam: Present normal affect and normal mood Skin Skin exam: Present warm, dry, intact and normal color Course Orders Category Date Time Status EKG (ED ONLY) *Do not use* NOW Care 11/04/24 17:34 Completed EKG (ED ONLY) *Do not use* NOW Care 11/04/24 22:10 Completed Orthostatic Vitals NOW Care 11/04/24 23:13 Active EKG (ED Only) Stat Exams 11/04/24 17:34 Draft EKG (ED Only) Stat Exams 11/04/24 22:10 Ordered XR chest 2V Stat Exams 11/04/24 17:34 Completed B-Type Natriuretic Peptide Stat Lab 11/04/24 17:49 Completed CBC Stat Lab 11/04/24 17:49 Completed Comprehensive Metabolic Panel Stat Lab 11/04/24 17:49 Completed Magnesium Stat Lab 11/04/24 17:49 Completed Partial Thromboplastin Time Stat Lab 11/04/24 17:49 Completed Prothrombin Time with INR Stat Lab 11/04/24 17:49 Completed Troponin I Stat Lab 11/04/24 17:49 Completed Troponin I Stat Lab 11/04/24 22:28 Completed Urinalysis Stat Lab 11/04/24 18:26 Completed Vital Signs Vital signs: Vital Signs Temperature 98.2 F 11/04/24 17:15 Pulse Rate 79 11/04/24 17:15 Respiratory Rate 18 11/04/24 17:15 Blood Pressure 138/78 H 11/04/24 17:15 Pulse Oximetry (%) 95 11/04/24 17:15 Oxygen Delivery Method Room Air 11/04/24 17:15 Discharge Plan Prescriptions/Referrals Prescriptions/Med Rec: No Action magnesium 200 mg Tablet 400 mg PO QDAY Eliquis DVT-PE Treat 30D Start 5 mg (74 tabs) tablets,dose pack 5 mg PO BID Qty: 74 0RF hydralazine 10 mg tablet 10 mg PO TID furosemide [Lasix] 40 mg tablet 40 mg PO QAM Kapspargo Sprinkle 50 mg capsule,sprinkle,ER 24hr 50 mg PO QDAY clopidogrel [Plavix] 75 mg tablet 75 mg PO QDAY Qty: 30 5RF aspirin 81 mg tablet,delayed release (DR/EC) 81 mg PO QDAY Qty: 30 5RF Referrals: Antonio Portillo MD [Primary Care Provider] - In 1 week Patient/Caregiver Discharge Instructions Print Language: Danish
--- NOTE | 2024-11-04 23:23 | PD.EDDIZZY ---
ED Dizzyness RME/HPI General Chief Complaint: Dizziness Stated Complaint: HAVING REALLY BAD DIZZY SPELL ; HX STENT 09/28/24 Time Seen by Provider: 11/04/24 23:23 Arrival date/time: 11/04/24 17:00 RME / HPI RME / HPI Narrative: 11/04/24 17:00 84-year-old male with a history of DVT, hypertension presents to the emergency room with a chief complaint of dizziness and near syncopal episodes x 3 days I have greeted and performed a focused initial assessment of this patient. A comprehensive ED assessment and evaluation of the patient, analysis of all test results, and completion of the medical decision making process will be conducted by additional ED providers. Dr. Castro?s Main ED Evaluation: 84yo male with a history of HTN, HLD, CAD s/p stent placement 09/28/24 presents to the ED for a chief complaint of dizziness. Patient states ever since he had his stent placed in September, he's felt dizzy and unsteady on his feet. Denies any falls or injuries. Patient is currently on Lasix 40mg daily. Patient denies any N/V, chest pain, shortness of breath, BLE swelling or any other associated symptoms. No known allergies. Truckload Checker is Dr. Larsen. Cat Driver is Dr. Livingston. Patient has a follow-up appointment with his associate software development engineer tomorrow. Related Data Home Medications ?Medication ?Instructions ?Recorded ?Confirmed magnesium 200 mg tablet 400 mg PO QDAY 08/21/17 09/28/24 furosemide 40 mg tablet (Lasix) 40 mg PO QAM 09/28/24 09/28/24 hydralazine 10 mg tablet 10 mg PO TID 09/28/24 09/28/24 metoprolol succinate 50 mg capsule 50 mg PO QDAY 09/28/24 09/28/24 sprinkle, ext. release 24 hr ([employer] Sprinkle) Previous Rx's ?Medication ?Instructions ?Recorded apixaban 5 mg (74 tabs) tablets in 5 mg PO BID #74 tabs 02/06/23 a dose pack ([employer] DVT-PE Treat 30D Start) Held on 09/28/24. Instructions: Resume on 09/29/24. YOU CAN START TAKING THIS MEDICATION AGAIN ON THIS DATE AT YOUR USUAL TIME aspirin 81 mg tablet,delayed 81 mg PO QDAY #30 tabs 09/28/24 release clopidogrel 75 mg tablet (Plavix) 75 mg PO QDAY #30 tabs 09/28/24 Allergies Allergy/AdvReac Type Severity Reaction Status Date / Time No Known Allergies Allergy Verified 11/04/24 17:03 Review of Systems Review of Systems Systems Reviewed: All systems reviewed, normal except as documented Past Medical History Past Medical History NEUROLOGIC: Negative Neurological Disorders or Seizures CARDIAC: Positive Cardiac Arrhythmia (SR wPVC-mold holder told not to worry just take magnesium), Hypercholesterolemia and Hypertension; Negative Cardiac Disorders or Congestive Heart Failure RESPIRATORY: Negative Chronic Obstructive Pulmonary Disease (COPD) or Asthma GASTROINTESTINAL: Negative Gastrointestinal Disorders GENITOURINARY: Positive Prostate Cancer; Negative Genitourinary Disorders or Renal Disease MUSCULOSKELETAL: Negative Musculoskeletal Disorders ENDOCRINE: Negative Endocrine Disorders, Diabetes Mellitus Type 1 or Diabetes Mellitus Type 2 HEMATOLOGIC: Negative Blood Disorders, Anemia or Sickle Cell Disease OTHER HISTORY: Positive Anesthesia Reactions (felt over sedated after colonoscopy) and Prostate Cancer; Negative Autoimmune Disease, Blood Transfusions or Blood Transfusion Reaction Family History FAMILY HISTORY: Negative Family Cardiac Disorders Surgical History SURGICAL: Positive Pacemaker and Joint Replacement (RIGHT KNEE REPLACEMENT 3 YEARS AGO) Social History SMOKING STATUS: Never smoker SECOND HAND EXPOSURE: No ED Exam Narrative Physical exam: GENERAL APPEARANCE: AxOx4, generally well-appearing, no acute distress. HEENT: NC, AT. MMM. EOMI, clear conjunctiva, oropharynx clear. NECK: Supple without lymphadenopathy. No stiffness or restricted ROM. HEART: Normal rate and regular rhythm, normal S1/S1, no m/r/g LUNGS: CTAB, moving air well. No crackles or wheezes are heard. ABDOMEN: Soft, nontender, nondistended with good bowel sounds heard. BACK: No midline C/T/L spine pain or deformity, No CVAT, no obvious deformity. EXTREMITIES: Without cyanosis, clubbing or edema. MUSCULOSKELETAL: FROM of all major joints, no chest tenderness NEUROLOGICAL: Grossly nonfocal. Alert and oriented, moving all 4 extremities. CN not formally tested but appear grossly intact. Observed to ambulate with normal gait. Skin: Warm and dry without any rash. Course Course Course Narrative: CXR is ordered for determining the etiology of dizziness. Quality Measures none Orders Category Date Time Status EKG (ED ONLY) *Do not use* NOW Care 11/04/24 17:34 Completed EKG (ED ONLY) *Do not use* NOW Care 11/04/24 22:10 Completed Orthostatic Vitals NOW Care 11/04/24 23:13 Completed EKG (ED Only) Stat Exams 11/04/24 17:34 Draft EKG (ED Only) Stat Exams 11/04/24 22:10 Ordered XR chest 2V Stat Exams 11/04/24 17:34 Completed B-Type Natriuretic Peptide Stat Lab 11/04/24 17:49 Completed CBC Stat Lab 11/04/24 17:49 Completed Comprehensive Metabolic Panel Stat Lab 11/04/24 17:49 Completed Magnesium Stat Lab 11/04/24 17:49 Completed Partial Thromboplastin Time Stat Lab 11/04/24 17:49 Completed Prothrombin Time with INR Stat Lab 11/04/24 17:49 Completed Troponin I Stat Lab 11/04/24 17:49 Completed Troponin I Stat Lab 11/04/24 22:28 Completed Urinalysis Stat Lab 11/04/24 18:26 Completed Vital Signs Vital signs: Vital Signs Temperature 98.2 F 11/04/24 17:15 Pulse Rate 79 11/04/24 17:15 Respiratory Rate 18 11/04/24 17:15 Blood Pressure 138/78 H 11/04/24 17:15 Pulse Oximetry (%) 95 11/04/24 17:15 Oxygen Delivery Method Room Air 11/04/24 17:15 Dizziness MDM Narrative MDM Narrative:: Scribe Attestation: 11/04/24 Fina Rosenbaum am scribing for and in the presence of Dr. Castro. Patient data External records reviewed:: [facility] previous records (Per chart review, patient has no relevant previous ED visits.) Clinical information provided by:: patient Social determinants that could affect healthcare access:: none Patient has the following chronic illnesses:: HTN, HLD, s/p stent placement How is presenting disease/condition affected by chronic disease/condition?: uneffected by Evaluation data The following diagnostics were reviewed and interpreted by me:: lab results, radiology exam(s) and EKG tracing(s) Lab and/or radiology exams considered but not ordered:: none Interpretation Summary: CBC is normal, PT and INR are normal, PTT is normal, Creatinine is 1.6, BUN is 30, Troponin is 0.074, Repeat troponin is 0.068, BNP is 129, UA is unremarkable, according to my interpretation. EKG done at 1736, NSR, rate of 69, normal axis, normal intervals, nonspecific ST-T wave changes, according to my interpretation. Repeat EKG done at 2219, paced rhythm, rate of 86, good sensing, good capture, according to my interpretation. [facility] Report Signed Patient: AMI CAMACHO [facility]. Record#: [id number] Birthdate: 1940 Age/Sex: 84 / M Location: [facility] Attending Dr: Ordering Physician: Tyler Agiulera Date of Service: 11/04/24 Procedure(s): XR chest 2V Accession Number(s): [id number] cc: Tyler Aguilera; Miki Chairez MD; Antonio Portillo MD~ Examination: PA lateral chest 2 views TECHNIQUE: upright PA lateral chest 2 views Exam date time: November 04, 2024 1818 hours Comparison November 14, 2023 INDICATIONS: Dizziness for deviating 5 weeks ago. FINDINGS: Mild prominence left ventricle Cardiac leads satisfactory position. No pneumonia or pulmonary edema. Moderate thoracic spondylosis IMPRESSION: No pneumonia or pulmonary edema Dictated By: Miki Chairez MD Signed By: <Electronically signed by Miki Chairez MD in OV> 11/04/24 1844 Medications / Prescriptions Medications or Prescriptions considered but not ordered:: none Medication administrations:: see above, if any Consultations Consultation(s) initiated? (list below): No Diagnosis Dizziness Differential Diagnosis: orthostatic hypotension and other (vertigo, dehydration, electrolyte abnormality, UTI) Most likely diagnosis given after review of the tests above:: see clinical impression below Admission Indicated Admission indicated?: not indicated Explain why admission is indicated or not indicated:: Patient feels comfortable being discharged home and following up with his associate software development engineer at his scheduled appointment tomorrow. Admission Request Was there a request for admission?: No Disposition Plan Disposition Plan: Discharge Discharge Attestation Discharge Attestation: The patient and all family members were given an opportunity to ask questions and understood the discharge instructions. Discharge instructions specifically effects, indications for sooner follow up or return to the emergency department, and the expected course of current diagnosis. Patient condition: Stable Discharge Plan Plan Patient Disposition: HOME (Self Care) Patient condition on transfer: Stable Prescriptions/Referrals Prescriptions/Med Rec: No Action magnesium 200 mg Tablet 400 mg PO QDAY Eliquis DVT-PE Treat 30D Start 5 mg (74 tabs) tablets,dose pack 5 mg PO BID Qty: 74 0RF hydralazine 10 mg tablet 10 mg PO TID furosemide [Lasix] 40 mg tablet 40 mg PO QAM [employer] Sprinkle 50 mg capsule,sprinkle,ER 24hr 50 mg PO QDAY clopidogrel [Plavix] 75 mg tablet 75 mg PO QDAY Qty: 30 5RF aspirin 81 mg tablet,delayed release (DR/EC) 81 mg PO QDAY Qty: 30 5RF Referrals: Antonio Portillo MD [Primary Care Provider] - In 1 week Problem List Clinical Impression: Orthostatic hypotension, Acute dehydration Patient/Caregiver Discharge Instructions Education Materials: ED Dehydration (Adult) Additional Instructions: Hold and do not take your Lasix for the next 2 mornings. Follow up with your associate software development engineer tomorrow as scheduled. You can return to the emergency department sooner if symptoms worsen or if you notice any new, concerning issues. Print Language: Uzbek Stand Alone Forms: [employer] Award Info., Patient Portal Info Letter
[2024-11-04 23:49] VITALS: BP 161/89; BP 163/83; BP 174/88; PULSE 59; PULSE 61; PULSE 65
== END 2024-11-04 23:54 | disposition home or self-care (01) ==
PROVIDERS: Nurse Practitioner Family; Physician Assistant; Emergency Provider Emergency Medicine; PCP Family Medicine
DX: E86.0 Dehydration (principal); I95.1 Orthostatic hypotension; R94.31 Abnormal electrocardiogram [ECG] [EKG]; I10 Essential (primary) hypertension; I25.10 Atherosclerotic heart disease of native coronary artery without angina pectoris; E78.00 Pure hypercholesterolemia, unspecified; Z95.5 Presence of coronary angioplasty implant and graft; Z79.01 Long term (current) use of anticoagulants; Z95.0 Presence of cardiac pacemaker
CPT/HCPCS: 36415; 71046; 80053; 81001; 83735; 83880; 84484; 85025; 85610; 85730; 93005; 99283

== ENCOUNTER → 2024-11-15 | Outpatient (CLI) | payer MEDICARE, OTHER, SELFPAY ==
[2024-11-15 10:10] LABS: Partial Thromboplastin Time 26.4 Seconds (22.0-36.0)
[2024-11-15 10:16] LABS: Basophils # (Auto) 0.1 Thou/mm3 (0.0-0.2); Basophils % (Auto) 1 % (0-2.5); Eosinophils # (Auto) 0.7 Thou/mm3 (0.0-0.5); Eosinophils % (Auto) 8 % (0-10); Hematocrit 39.9 % (41.0-53.0); Hemoglobin 13.3 g/dL (13.5-16.0); Immature Granulocytes % (Auto) 1 % (0-0); Immature Granulocytes Auto 0.04 Thou/mm3 (0.00-0.00); Lymphocytes # (Auto) 2.5 Thou/mm3 (1.0-4.8); Lymphocytes % (Auto) 30 % (10-50); Mean Corpuscular HGB Conc 33.3 g/dl (31.0-37.0); Mean Corpuscular Volume 90 fL (80-100); Monocytes # (Auto) 0.6 Thou/mm3 (0.0-0.8); Monocytes % (Auto) 7 % (0-12); Neutrophils # (Auto) 4.5 Thou/mm3 (1.8-7.7); Neutrophils % (Auto) 53 % (37-80); Nucleated Red Blood Cell % 0 /100 WBC (0); Platelet Count 201 Thou/mm3 (140-440); RDW Standard Deviation 45.7 fL (35.1-43.9); Red Blood Count 4.43 Miln/mm3 (4.50-5.90); White Blood Count 8.4 Thou/mm3 (3.8-10.6)
[2024-11-15 10:59] LABS: Anion Gap 9 (7-16); BUN/Creatinine Ratio 19 Ratio (12-20); Blood Urea Nitrogen 27 mg/dL (9-23); Calcium 9.7 mg/dL (8.3-10.6); Carbon Dioxide 29.4 mMol/L (20.0-31.0); Chloride 101 mMol/L (98-107); Creatinine (Component) 1.4 mg/dL (0.6-1.3); Glucose 98 mg/dL (74-106); Osmolality,Calculated 282 (275-295); Potassium 3.9 mMol/L (3.4-5.1); Sodium 139 mMol/L (136-145); eGFR 50 See Note
[2024-11-15 11:08] LABS: Prostate Specific Antigen < 0.10 ng/mL (0-4.00)
== END | disposition home or self-care (01) ==
LOC: SCTO 09:01
PROVIDERS: PCP Family Medicine; Referring Provider Internal Medicine; Visit Provider Radiology Therapeutic Radiology
DX: C61 Malignant neoplasm of prostate (principal); I25.10 Atherosclerotic heart disease of native coronary artery without angina pectoris; I48.91 Unspecified atrial fibrillation
CPT/HCPCS: 36415; 80048; 84153; 85025; 85610; 85730

== ENCOUNTER 2024-11-17 08:59 | Outpatient (RCR) | payer MEDICARE, OTHER, SELFPAY ==
--- NOTE | 2024-11-18 14:18 | CTCFLWUP_ITS ---
[facility] [address] [place], [place] [address] FOLLOW-UP NOTE Date: 11/17/2024 MR#: [id number] Name: AMI CAMACHO : 1940 Dx: C61 Malignant neoplasm of prostate Identification. History of prostate CA status post radical prostectomy 2007. By local urologist. PSA noted to be rising to 5.41 on 01/19/2023 Had nonspecific uptake in PET scan 04/05/2022 the plain x-rays and subsequent MRI were nondiagnostic for mets. Repeat PET scan 09/26/2022 showed no obvious mets. XRT to pelvis 6840 centigray completed 05/06/2023. Most recent labs 11/15/2024 less than 0.10 PSA. Reportedly is awaiting cardiac stent. Has minimal pelvic symptoms. Will see him in 6 months with another PSA check. No sign of recurrence of his prostate cancer clinically or biochemically. Electronically signed by: Koko Snyder M.D. 11/17/2024 9:35 AM
== END 2024-11-27 23:59 | disposition home or self-care (01) ==
LOC: SCTC 08:59
PROVIDERS: PCP Family Medicine; Referring Provider Family Medicine; Visit Provider Radiology Therapeutic Radiology
DX: Z08 Encounter for follow-up examination after completed treatment for malignant neoplasm (principal); Z85.46 Personal history of malignant neoplasm of prostate; Z90.79 Acquired absence of other genital organ(s)
CPT/HCPCS: 99212; G0463

== ENCOUNTER → 2024-11-25 | Outpatient (CLI) | payer MEDICARE, OTHER, SELFPAY ==
[2024-11-25 10:29] LABS: Basophils # (Auto) 0.1 Thou/mm3 (0.0-0.2); Basophils % (Auto) 1 % (0-2.5); Eosinophils # (Auto) 0.5 Thou/mm3 (0.0-0.5); Eosinophils % (Auto) 8 % (0-10); Hematocrit 38.2 % (41.0-53.0); Hemoglobin 12.8 g/dL (13.5-16.0); Immature Granulocytes % (Auto) 0 % (0-0); Immature Granulocytes Auto 0.02 Thou/mm3 (0.00-0.00); Lymphocytes # (Auto) 2.4 Thou/mm3 (1.0-4.8); Lymphocytes % (Auto) 37 % (10-50); Mean Corpuscular HGB Conc 33.5 g/dl (31.0-37.0); Mean Corpuscular Hemoglobin 29.6 pg (25.0-35.0); Mean Corpuscular Volume 88 fL (80-100); Monocytes # (Auto) 0.6 Thou/mm3 (0.0-0.8); Monocytes % (Auto) 10 % (0-12); Neutrophils % (Auto) 45 % (37-80); Nucleated Red Blood Cell % 0 /100 WBC (0); Platelet Count 183 Thou/mm3 (140-440); RDW Standard Deviation 44.5 fL (35.1-43.9); Red Blood Count 4.33 Miln/mm3 (4.50-5.90); White Blood Count 6.6 Thou/mm3 (3.8-10.6)
[2024-11-25 10:46] LABS: Alanine Aminotransferase 16 U/L (10-49); Albumin, Serum 4.1 gm/dL (3.4-4.8); Albumin/Globulin Ratio 1.8 (1.2-2.2); Alkaline Phosphatase 41 U/L (46-116); Anion Gap 10 (7-16); Aspartate Amino Transferase 20 U/L (0-34); BUN/Creatinine Ratio 19 Ratio (12-20); Bilirubin,Total 0.8 mg/dL (0.3-1.2); Blood Urea Nitrogen 30 mg/dL (9-23); Carbon Dioxide 28.1 mMol/L (20.0-31.0); Chloride 103 mMol/L (98-107); Creatinine (Component) 1.6 mg/dL (0.6-1.3); Globulin 2.3 gm/dL (2.3-3.5); Glucose 100 mg/dL (74-106); Osmolality,Calculated 287 (275-295); Potassium 4.2 mMol/L (3.4-5.1); Sodium 141 mMol/L (136-145); Total Protein 6.4 gm/dL (5.7-8.2); eGFR 43 See Note
== END | disposition home or self-care (01) ==
PROVIDERS: Orthopaedic Surgery; PCP Internal Medicine; Referring Provider Internal Medicine; Visit Provider Internal Medicine Nephrology
DX: I12.9 Hypertensive chronic kidney disease with stage 1 through stage 4 chronic kidney disease, or unspecified chronic kidney disease (principal); E78.5 Hyperlipidemia, unspecified; N18.30 Chronic kidney disease, stage 3 unspecified; D63.1 Anemia in chronic kidney disease
CPT/HCPCS: 36415; 80053; 85025

== ENCOUNTER → 2024-12-22 | Outpatient (CLI) | payer MEDICARE, OTHER, SELFPAY ==
--- NOTE | 2024-12-22 | XR_ITS ---
Examination: Cervical spine 3 views Technique one AP lateral coned AP odontoid cervical spine 3 views Date and time: December 22, 2024 1302 hours Comparison April 16, 2022 INDICATIONS: Neck pain beginning one year ago. 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
[2024-12-22 14:25] LABS: Basophils # (Auto) 0.1 Thou/mm3 (0.0-0.2); Basophils % (Auto) 1 % (0-2.5); Eosinophils # (Auto) 0.6 Thou/mm3 (0.0-0.5); Eosinophils % (Auto) 7 % (0-10); Hematocrit 39.8 % (41.0-53.0); Hemoglobin 13.5 g/dL (13.5-16.0); Immature Granulocytes % (Auto) 0 % (0-0); Immature Granulocytes Auto 0.02 Thou/mm3 (0.00-0.00); Lymphocytes # (Auto) 2.6 Thou/mm3 (1.0-4.8); Lymphocytes % (Auto) 30 % (10-50); Mean Corpuscular HGB Conc 33.9 g/dl (31.0-37.0); Mean Corpuscular Hemoglobin 29.3 pg (25.0-35.0); Mean Corpuscular Volume 87 fL (80-100); Monocytes # (Auto) 0.5 Thou/mm3 (0.0-0.8); Monocytes % (Auto) 6 % (0-12); Neutrophils # (Auto) 4.8 Thou/mm3 (1.8-7.7); Neutrophils % (Auto) 55 % (37-80); Nucleated Red Blood Cell % 0 /100 WBC (0); Platelet Count 187 Thou/mm3 (140-440); RDW Standard Deviation 43.9 fL (35.1-43.9); White Blood Count 8.7 Thou/mm3 (3.8-10.6)
[2024-12-22 14:41] LABS: Alanine Aminotransferase 19 U/L (10-49); Albumin, Serum 4.4 gm/dL (3.4-4.8); Albumin/Globulin Ratio 1.8 (1.2-2.2); Alkaline Phosphatase 50 U/L (46-116); Anion Gap 8 (7-16); Aspartate Amino Transferase 24 U/L (0-34); BUN/Creatinine Ratio 14 Ratio (12-20); Bilirubin,Total 0.8 mg/dL (0.3-1.2); Blood Urea Nitrogen 18 mg/dL (9-23); Calcium 9.4 mg/dL (8.3-10.6); Calcium (Corrected) 9.4 mg/dL (8.5-10.1); Carbon Dioxide 26.6 mMol/L (20.0-31.0); Chloride 106 mMol/L (98-107); Creatinine (Component) 1.3 mg/dL (0.6-1.3); Globulin 2.4 gm/dL (2.3-3.5); Glucose 92 mg/dL (74-106); Osmolality,Calculated 283 (275-295); Potassium 4.4 mMol/L (3.4-5.1); Sodium 141 mMol/L (136-145); Total Protein 6.8 gm/dL (5.7-8.2); eGFR 55 See Note
== END | disposition home or self-care (01) ==
LOC: COPL 12:07
PROVIDERS: PCP Internal Medicine; Referring Provider Internal Medicine Nephrology; Visit Provider Radiology Diagnostic Radiology
DX: M50.323 Other cervical disc degeneration at C6-C7 level (principal); I12.9 Hypertensive chronic kidney disease with stage 1 through stage 4 chronic kidney disease, or unspecified chronic kidney disease; N18.30 Chronic kidney disease, stage 3 unspecified; D63.1 Anemia in chronic kidney disease
CPT/HCPCS: 36415; 72040; 80053; 85025

== ENCOUNTER → 2025-05-16 | Outpatient (CLI) | payer MEDICARE, OTHER, SELFPAY ==
[2025-05-16 14:42] LABS: Prostate Specific Antigen < 0.10 ng/mL (0-4.00)
== END | disposition home or self-care (01) ==
LOC: SCTO 12:59
PROVIDERS: PCP Internal Medicine; Referring Provider Radiology Therapeutic Radiology; Visit Provider Radiology Therapeutic Radiology
DX: C61 Malignant neoplasm of prostate (principal)
CPT/HCPCS: 36415; 84153

== ENCOUNTER 2025-05-19 09:06 | Outpatient (RCR) | payer MEDICARE, OTHER, SELFPAY ==
--- NOTE | 2025-05-19 09:42 | CTCFLWUP_ITS ---
[facility] [address] [place], [place] [address] FOLLOW-UP NOTE Date: 05/19/2025 MR#: [id number] Name: AMI CAMACHO : 1940 Dx: C61 Malignant neoplasm of prostate Identification. 84-year-old gentleman radical prostectomy 2007 with PSA rising to 5.417 2323. Nonspecific uptake PET scan 04/05/2022 and plain x-ray and subsequent MRI were nondiagnostic for pets. Repeat PET 09/26/2022 showed no obvious mets. XRT to pelvis 6840 cGy completed 05/06/2023. Most recent labs 05/16/2025 PSA less than 0.10 Doing well with no pelvic symptoms. Told to return in 6 months with PSA just before. Electronically signed by: Koko Snyder M.D. 05/19/2025 9:40 AM
== END 2025-05-29 23:59 | disposition home or self-care (01) ==
LOC: SCTC 09:06
PROVIDERS: PCP Internal Medicine; Referring Provider Internal Medicine; Visit Provider Radiology Therapeutic Radiology
DX: C61 Malignant neoplasm of prostate (principal); Z92.3 Personal history of irradiation; Z90.79 Acquired absence of other genital organ(s)
CPT/HCPCS: 99212; G0463